=== PATIENT | female | born 1935 | race Caucasian/White ===

== ENCOUNTER 2017-11-21 19:42 | Inpatient (IN) | payer OTHER ==
[~2017-11-21] VITALS: Ht 149.9 cm; Wt 62.6 kg
[~2017-11-21 19:42] MED LIST: ACT15 PO; ASPIR 8181 MG PO; CORE25 PO; HYDRALAZINE PO; LEVAQUIN750 MG PO; LIPI20 PO; NOR10 PO; VITAMIN D32000 I2 PO
[2017-11-21 20:08] VITALS: Ht 149.9 cm; Wt 62.6 kg
[2017-11-21 21:23] LABS: BASOPHIL % 1.4 % (0-2); PLATELET COUNT 210 x10^3mcL (130-400)
[2017-11-21 21:27] LABS: CALCIUM 9.1 mg/dL (8.5-10.1); CHLORIDE SERUM 105 mmol/L (98-107); CREATININE SERUM 1.1 mg/dL (0.6-1.0); GLUCOSE SERUM 156 mg/dL (74-106); POTASSIUM SERUM 4.5 mmol/L (3.5-5.1); SODIUM SERUM 138 mmol/L (136-145)
[2017-11-21 21:31] LABS: ALKALINE PHOSPHATASE 53 U/L (46-116); ALT/SGPT 16 U/L (14-59); AST/SGOT 13 U/L (15-37); BILIRUBIN TOTAL 0.3 mg/dL (0.20-1.00); CHOLESTEROL 135 mg/dL (<200)
[2017-11-21 21:40] LABS: ALBUMIN 3.2 g/dL (3.4-5.0)
[2017-11-21] MEDS ORDERED: ATORVASTATIN CA40 M1 PO (23:01)
[2017-11-21] MEDS ORDERED: CARVEDILOL25 M1 PO (23:01)
[2017-11-21] MEDS ORDERED: LOTREL1 CA5 PO (23:01)
[2017-11-21] MEDS ORDERED: ASPIR 8181 MG PO (23:02)
[2017-11-21] MEDS ORDERED: PIOGLITAZONE HC1 TAB PO (23:03)
[2017-11-22] VITALS (8 sets, daily range): BP systolic 122–178; BP diastolic 49–96
[2017-11-22 02:35] LABS: CHOLESTEROL/HDL RATIO 2.8; MAGNESIUM 1.9 mg/dL (1.8-2.4)
[2017-11-22 02:47] LABS: FREE T4 1.41 ng/dL (0.76-1.46); FREE THYROXINE INDEX 3.5 ug/dL (1.4-4.5); T4(THYROXINE) 10.5 ug/dL (4.7-13.3)
[2017-11-22 06:02] LABS: BASOPHIL % 0.9 % (0-2); PLATELET COUNT 192 x10^3mcL (130-400)
[2017-11-22 06:07] LABS: CALCIUM 8.6 mg/dL (8.5-10.1); CARBON DIOXIDE 22.4 mmol/L (21-32); CHLORIDE SERUM 109 mmol/L (98-107); CREATININE SERUM 0.9 mg/dL (0.6-1.0); GLUCOSE SERUM 83 mg/dL (74-106); POTASSIUM SERUM 3.8 mmol/L (3.5-5.1); SODIUM SERUM 142 mmol/L (136-145)
[2017-11-22 06:38] LABS: RED CELL DISTRIBUTION WIDTH 16.6 % (11.5-14.5)
[2017-11-22 07:31] LABS: microscopic required? YES; urine erythrocyte TRACE (NEGATIVE)
[2017-11-22 07:40] LABS: AMPHETAMINE QUAL UR NONE DETECTED (NEG <=1000)
[2017-11-23 05:13] VITALS: BP 161/58
[2017-11-23 06:28] LABS: BASOPHIL % 0.6 % (0-2); PLATELET COUNT 182 x10^3mcL (130-400)
[2017-11-23 06:30] LABS: RED CELL DISTRIBUTION WIDTH 16.8 % (11.5-14.5)
[2017-11-23 06:37] LABS: CALCIUM 8.8 mg/dL (8.5-10.1); CARBON DIOXIDE 23.8 mmol/L (21-32); CHLORIDE SERUM 110 mmol/L (98-107); CREATININE SERUM 0.8 mg/dL (0.6-1.0); GLUCOSE SERUM 94 mg/dL (74-106); SODIUM SERUM 142 mmol/L (136-145)
[2017-11-23 08:40] VITALS: BP 164/54
[2017-11-23] MEDS ORDERED: KEPPRA500 MG PO (09:09)
[2017-11-23 12:24] VITALS: BP 146/62
[2017-11-23 12:52] VITALS: BP 135/62
== END 2017-11-23 13:30 | disposition home health service (06) | DRG 438 ==
LOC: ED 19:42 → DU 22:59
PROVIDERS: Family Medicine; Specialist
DX: K85.90 Acute pancreatitis without necrosis or infection, unspecified (principal); N17.0 Acute kidney failure with tubular necrosis; E44.1 Mild protein-calorie malnutrition; G90.8 Other disorders of autonomic nervous system; I10 Essential (primary) hypertension; E11.9 Type 2 diabetes mellitus without complications; Z95.0 Presence of cardiac pacemaker; Z95.1 Presence of aortocoronary bypass graft; E86.0 Dehydration; I25.2 Old myocardial infarction; D32.9 Benign neoplasm of meninges, unspecified; Z98.42 Cataract extraction status, left eye; Z98.41 Cataract extraction status, right eye; D16.4 Benign neoplasm of bones of skull and face
CPT/HCPCS: 82962; 83880; 84439; 97110-GP; G0480; J7030; Q0092

== ENCOUNTER 2019-06-30 17:46 | Emergency (ER) | payer OTHER ==
[~2019-06-30] VITALS: Ht 157.5 cm; Wt 63.5 kg
[~2019-06-30 17:46] MED LIST changes: +ATORVASTATIN CA40 M1 PO; +CARVEDILOL25 M1 PO; +KEPPRA500 MG PO; +LOTREL1 CA5 PO; +PIOGLITAZONE HC1 TAB PO
[2019-06-30 17:54] VITALS: Ht 157.5 cm; Wt 63.5 kg
[2019-06-30 19:13] LABS: CALCIUM 8.5 mg/dL (8.5-10.1); CARBON DIOXIDE 24.5 mmol/L (21-32); CHLORIDE SERUM 105 mmol/L (98-107); CREATININE SERUM 1.6 mg/dL (0.6-1.0); GLUCOSE SERUM 249 mg/dL (74-106); POTASSIUM SERUM 5.2 mmol/L (3.5-5.1); SODIUM SERUM 140 mmol/L (136-145)
[2019-06-30 19:17] LABS: ALBUMIN 3.1 g/dL (3.4-5.0); ALKALINE PHOSPHATASE 76 U/L (46-116); ALT/SGPT 24 U/L (14-59); AST/SGOT 19 U/L (15-37); BILIRUBIN TOTAL 0.16 mg/dL (0.20-1.00); TOTAL PROTEIN, SERUM 6.8 g/dL (6.4-8.2)
[2019-06-30 19:18] LABS: BASOPHIL % 0.5 % (0-2); PLATELET COUNT 144 x10^3mcL (130-400); RED CELL DISTRIBUTION WIDTH 14.3 % (11.5-14.5)
[2019-06-30 20:31] VITALS: BP 168/50
== END 2019-06-30 20:31 | disposition home or self-care (01) ==
LOC: ED 17:46
PROVIDERS: Emergency Medicine
DX: G40.909 Epilepsy, unspecified, not intractable, without status epilepticus (principal); I10 Essential (primary) hypertension; E11.9 Type 2 diabetes mellitus without complications; Z95.0 Presence of cardiac pacemaker
CPT/HCPCS: 36415; Q0092

== ENCOUNTER 2019-10-23 18:17 | Inpatient (IN) | payer MEDICARE ==
[~2019-10-23] VITALS: Ht 149.9 cm; Wt 69.9 kg
[~2019-10-23 18:17] MED LIST changes: -PIOGLITAZONE HC1 TAB PO; +PIOGLITAZONE HY PO
[2019-10-23 18:37] VITALS: Ht 149.9 cm; Wt 69.9 kg
[2019-10-23 20:35] LABS: BASOPHIL % 0.9 % (0-2); PLATELET COUNT 153 x10^3mcL (130-400)
[2019-10-23 20:36] LABS: RED CELL DISTRIBUTION WIDTH 14.9 % (11.5-14.5)
[2019-10-23 21:00] LABS: CALCIUM 8.7 mg/dL (8.5-10.1); CHLORIDE SERUM 109 mmol/L (98-107); CREATININE SERUM 1.5 mg/dL (0.6-1.0); GLUCOSE SERUM 128 mg/dL (74-106); SODIUM SERUM 142 mmol/L (136-145)
[2019-10-23 21:05] LABS: ALKALINE PHOSPHATASE 80 U/L (46-116); ALT/SGPT 13 U/L (14-59); AST/SGOT 13 U/L (15-37); BILIRUBIN TOTAL 0.28 mg/dL (0.20-1.00); TOTAL PROTEIN, SERUM 7.2 g/dL (6.4-8.2)
[2019-10-23 21:06] LABS: ALBUMIN 3.1 g/dL (3.4-5.0)
[2019-10-23] MEDS ORDERED: ELIQUIS2.5 MG PO (22:06)
[2019-10-23] MEDS ORDERED: OXTELLAR XR600 MG PO (22:07)
[2019-10-24 00:55] LABS: T3 TOTAL 0.55 ng/mL
[2019-10-24 00:59] VITALS: BP 178/52
[2019-10-24 01:52] LABS: CHOLESTEROL/HDL RATIO 3.3
[2019-10-24 02:16] LABS: FREE T4 0.65 ng/dL (0.76-1.46); FREE THYROXINE INDEX 1.8 ug/dL (1.4-4.5); T4(THYROXINE) 5.7 ug/dL (4.7-13.3)
[2019-10-24 03:16] VITALS: BP 138/39
[2019-10-24 07:03] LABS: BASOPHIL % 0.5 % (0-2); PLATELET COUNT 137 x10^3mcL (130-400)
[2019-10-24 07:09] LABS: CALCIUM 8.2 mg/dL (8.5-10.1); CARBON DIOXIDE 24.4 mmol/L (21-32); CHLORIDE SERUM 111 mmol/L (98-107); CREATININE SERUM 1.3 mg/dL (0.6-1.0); GLUCOSE SERUM 88 mg/dL (74-106); MAGNESIUM 2.4 mg/dL (1.8-2.4); PHOSPHOROUS 3.8 mg/dL (2.5-4.9); POTASSIUM SERUM 4.6 mmol/L (3.5-5.1); SODIUM SERUM 145 mmol/L (136-145)
[2019-10-24 07:12] LABS: RED CELL DISTRIBUTION WIDTH 14.9 % (11.5-14.5)
[2019-10-24 09:06] VITALS: BP 157/41
[2019-10-24 12:10] VITALS: BP 139/36
[2019-10-24 16:31] VITALS: BP 114/44
[2019-10-24 23:11] VITALS: BP 155/49
[2019-10-25 04:38] VITALS: BP 167/49
[2019-10-25 07:06] LABS: BASOPHIL % 0.5 % (0-2); PLATELET COUNT 137 x10^3mcL (130-400)
[2019-10-25 07:32] LABS: CARBON DIOXIDE 24.7 mmol/L (21-32); CHLORIDE SERUM 110 mmol/L (98-107); CREATININE SERUM 1.2 mg/dL (0.6-1.0); GLUCOSE SERUM 95 mg/dL (74-106); POTASSIUM SERUM 4.2 mmol/L (3.5-5.1); SODIUM SERUM 144 mmol/L (136-145)
[2019-10-25 09:14] VITALS: BP 170/58
[2019-10-25 12:33] VITALS: BP 158/51
[2019-10-25 16:55] VITALS: BP 150/44
[2019-10-25 17:58] LABS: UA SPECIFIC GRAVITY 1.025 (1.005-1.035); microscopic required? YES; urine erythrocyte TRACE (NEGATIVE)
[2019-10-25 18:09] LABS: AMPHETAMINE QUAL UR NONE DETECTED (See below)
[2019-10-25 20:31] VITALS: BP 147/43
[2019-10-26 06:08] LABS: BASOPHIL % 0.5 % (0-2); PLATELET COUNT 146 x10^3mcL (130-400)
[2019-10-26 06:18] LABS: RED CELL DISTRIBUTION WIDTH 14.9 % (11.5-14.5)
[2019-10-26 06:38] VITALS: BP 112/74; BP 127/35
[2019-10-26 06:53] LABS: CALCIUM 8.3 mg/dL (8.5-10.1); CARBON DIOXIDE 26.4 mmol/L (21-32); CHLORIDE SERUM 110 mmol/L (98-107); CREATININE SERUM 1.4 mg/dL (0.6-1.0); GLUCOSE SERUM 97 mg/dL (74-106); MAGNESIUM 2.3 mg/dL (1.8-2.4); POTASSIUM SERUM 4.7 mmol/L (3.5-5.1); SODIUM SERUM 146 mmol/L (136-145)
[2019-10-26 08:32] VITALS: BP 125/30
[2019-10-26 13:51] VITALS: BP 143/41
[2019-10-26 18:12] VITALS: BP 145/49
[2019-10-26 20:06] VITALS: BP 176/56
[2019-10-27 04:52] VITALS: BP 159/45
[2019-10-27 05:06] VITALS: BP 159/45
[2019-10-27 06:54] LABS: BASOPHIL % 0.4 % (0-2); PLATELET COUNT 149 x10^3mcL (130-400)
[2019-10-27 06:56] LABS: RED CELL DISTRIBUTION WIDTH 14.8 % (11.5-14.5)
[2019-10-27 07:39] LABS: CALCIUM 8.3 mg/dL (8.5-10.1); CARBON DIOXIDE 26.2 mmol/L (21-32); CHLORIDE SERUM 109 mmol/L (98-107); CREATININE SERUM 1.3 mg/dL (0.6-1.0); GLUCOSE SERUM 112 mg/dL (74-106); MAGNESIUM 2.2 mg/dL (1.8-2.4); PHOSPHOROUS 4.1 mg/dL (2.5-4.9); POTASSIUM SERUM 4.4 mmol/L (3.5-5.1); SODIUM SERUM 145 mmol/L (136-145)
[2019-10-27 09:54] VITALS: BP 168/46
[2019-10-27 14:10] VITALS: BP 175/52
[2019-10-27 18:57] VITALS: BP 152/48
[2019-10-27 21:44] VITALS: BP 175/66
[2019-10-28] VITALS (7 sets, daily range): BP systolic 121–183; BP diastolic 48–84
[2019-10-28 07:12] LABS: BASOPHIL % 0.2 % (0-2); PLATELET COUNT 140 x10^3mcL (130-400)
[2019-10-28 07:16] LABS: CALCIUM 8.6 mg/dL (8.5-10.1); CARBON DIOXIDE 27.7 mmol/L (21-32); CHLORIDE SERUM 108 mmol/L (98-107); CREATININE SERUM 1.3 mg/dL (0.6-1.0); GLUCOSE SERUM 147 mg/dL (74-106); SODIUM SERUM 145 mmol/L (136-145)
[2019-10-28 07:25] LABS: RED CELL DISTRIBUTION WIDTH 14.8 % (11.5-14.5)
[2019-10-29 05:35] VITALS: BP 141/50
[2019-10-29 06:37] LABS: BASOPHIL % 0.2 % (0-2); PLATELET COUNT 149 x10^3mcL (130-400); RED CELL DISTRIBUTION WIDTH 14.5 % (11.5-14.5)
[2019-10-29 06:56] LABS: CALCIUM 8.4 mg/dL (8.5-10.1); CARBON DIOXIDE 29.2 mmol/L (21-32); CHLORIDE SERUM 107 mmol/L (98-107); CREATININE SERUM 1.3 mg/dL (0.6-1.0); GLUCOSE SERUM 133 mg/dL (74-106); POTASSIUM SERUM 4.9 mmol/L (3.5-5.1); SODIUM SERUM 144 mmol/L (136-145)
[2019-10-29 07:56] VITALS: BP 114/63
[2019-10-29] MEDS ORDERED: BACTRIM DS1 TAB PO (11:40)
[2019-10-29] MEDS ORDERED: TRILEPTAL600 MG PO (11:55)
[2019-10-29 12:30] VITALS: BP 117/43
[2019-10-29 13:23] VITALS: BP 117/43
== END 2019-10-29 17:37 | DRG 100 ==
LOC: ED 18:17 → MU 23:25 → DU 23:25 → MU 10-28 16:23
PROVIDERS: Emergency Medicine; Student in an Organized Health Care Education/Training Program; ADMIT Internal Medicine
PROC: 4B02XSZ Measurement of Cardiac Pacemaker, External Approach (ICD-10-PCS; principal; 2019-10-27)
DX: G40.909 Epilepsy, unspecified, not intractable, without status epilepticus (principal); N17.0 Acute kidney failure with tubular necrosis; E44.0 Moderate protein-calorie malnutrition; I13.0 Hypertensive heart and chronic kidney disease with heart failure and stage 1 through stage 4 chronic kidney disease, or unspecified chronic kidney disease; G90.8 Other disorders of autonomic nervous system; S40.812A Abrasion of left upper arm, initial encounter; S40.811A Abrasion of right upper arm, initial encounter; E86.0 Dehydration; I25.10 Atherosclerotic heart disease of native coronary artery without angina pectoris; N18.9 Chronic kidney disease, unspecified; E11.22 Type 2 diabetes mellitus with diabetic chronic kidney disease; E78.5 Hyperlipidemia, unspecified; D64.9 Anemia, unspecified; Z95.0 Presence of cardiac pacemaker; Z95.1 Presence of aortocoronary bypass graft; Z79.84 Long term (current) use of oral hypoglycemic drugs; Z91.81 History of falling; Z90.710 Acquired absence of both cervix and uterus; Z68.27 Body mass index [BMI] 27.0-27.9, adult; W18.39XA Other fall on same level, initial encounter; Y92.013 Bedroom of single-family (private) house as the place of occurrence of the external cause
CPT/HCPCS: 82962; 83880; 84439; 90715; 97110-GP; 97116-GP; 97530-GP; G0378; J0360; J0696; J2405; J2765; J7040; J7050; Q0092